=== PATIENT | female | born 1985 | race Caucasian/White ===

== ENCOUNTER 2017-07-11 20:08 | Observation (INO) | payer OTHER ==
[~2017-07-11] VITALS: Ht 157.5 cm; Wt 72.7 kg
--- NOTE | ~2017-07-11 | HP ---
History And Physical [facility] [address] [place]. [address] NAME: ASPEN MISHRA : 81 STATUS : DIS Jeovanny PAT#: [id number] AGE: 32 ADM/REG DATE : 07/12/17 MR#: [id number] REPORT SERV DATE: 07/13/17 DICTATED BY: SEB SCHNEIDER DATE: 07/13/17 REPORT STATUS : Draft TRANSCRIBED BY: MODVanessa DATE: 07/13/17 DATE OF ADMISSION: 07/12/2017 CHIEF COMPLAINT: Right flank pain. HISTORY OF PRESENT ILLNESS: Ms. Mishra is a 32-year-old healthy female with a two-day history of right flank pain. She endorses nausea, vomiting, fevers, and chills. She presents to the ER. In the ER, her white count is elevated at 15,000. Her urinalysis was inflammatory. Her pain is uncontrolled with oral pain medications. CT scan demonstrated an 8 mm stone in the proximal right ureter. I have been asked to admit the patient for these reasons. PAST MEDICAL HISTORY: None. PAST SURGICAL HISTORY: None. MEDICATIONS: Reviewed and listed in the chart. ALLERGIES: AMOXICILLIN. SOCIAL HISTORY: She does not smoke, drink, or use illegal drugs. REVIEW OF SYSTEMS: A 12-point review of systems was performed. Pertinent positives listed in the HPI. PHYSICAL EXAMINATION: VITAL SIGNS: Her temperature is 98.4, pulse is in the 100s, blood pressure is 102/64, and saturating 98% on room air. GENERAL: She is in no acute distress. She appears her stated age. HEENT: Her head is normocephalic and atraumatic. LUNGS: Breathing is nonlabored. She is not in respiratory distress. HEART: Pulse is regular in rate and rhythm. ABDOMEN: Soft, nontender, nondistended. She has right CVA tenderness. GENITOURINARY: She has normal external genitalia. PSYCHIATRIC: She is alert and oriented x3. EXTREMITIES: There is no cyanosis or edema. LABORATORY DATA: White count 15.7, hemoglobin is 12.8. Creatinine is 1.19. Urinalysis has large leukocyte esterase and blood. There are no nitrites. There are rare bacteria. IMAGING: CT scan of the abdomen and pelvis was personally reviewed and interpreted by myself. There is an 8 mm stone in the proximal right ureter. ASSESSMENT: Right ureteral stone. PLAN: Ms. Mishra has a right ureteral stone, which is causing severe pain and History And Physical [address] [address] NAME: ASPEN MISHRA : 81 STATUS : DIS Jeovanny PAT#: [id number] AGE: 32 ADM/REG DATE : 07/12/17 MR#: [id number] REPORT SERV DATE: 07/13/17 DICTATED BY: SEB SCHNEIDER DATE: 07/13/17 REPORT STATUS : Draft TRANSCRIBED BY: MARTHA DATE: 07/13/17 hydronephrosis. Her pain is uncontrolled with oral pain medications. She also has a history of fevers and an elevated white count. I think the safest thing to do at this point would be to place a stent and treat her stone in delayed fashion. We will plan on placing a stent CONY. We will keep her on IV antibiotics. ARTUR/MARTHA Seb Schneider MD / [id number] CC: Seb Schneider MD NO PCP
--- NOTE | ~2017-07-11 | OP ---
Record Of Operation [facility] [address] [place]. [address] NAME: ASPEN MISHRA : 81 STATUS : DIS Jeovanny PAT#: [id number] AGE: 32 ADM/REG DATE : 07/12/17 MR#: [id number] REPORT SERV DATE: 07/13/17 DICTATED BY: SEB SCHNEIDER DATE: 07/13/17 REPORT STATUS : Draft TRANSCRIBED BY: MARTHA DATE: 07/13/17 DATE OF PROCEDURE: 07/13/2017 TITLE OF OPERATION: Cystourethroscopy, right retrograde pyelogram placement 6 x 24 right ureteral stent. PREOPERATIVE DIAGNOSIS: Right ureteral stone. POSTOPERATIVE DIAGNOSIS: Right ureteral stone. INDICATIONS: Ms. Mishra is a 32-year-old female with an 8 mm right ureteral stone. She has uncontrolled pain [place] [id number]. She is here for stent placement. ANESTHESIA: General. COMPLICATIONS: None. IMPLANT: 6 x 24 right ureteral stent with no tether. SPECIMENS: None. NARRATIVE: The patient was brought to the operating room, identified by wristband. General anesthesia was induced and Rocephin were given for preoperative antibiotics. She was placed in dorsal lithotomy position, prepped and draped in sterile fashion. A 22-Salvadorean cystoscope was placed into her urethra and into her bladder. The bladder was inspected and was normal. The right ureteral orifice was identified and cannulated with a Sensor wire. Retrograde pyelogram was shot, which demonstrated a stone in the proximal right ureter. A wire was placed up past the stone with the aid of the open-ended catheter. A 6 x 24 ureteral stent was placed over the wire into the kidney. The proximal coil was in the renal pelvis. Distal coil was in the bladder. The bladder was drained. The patient was awoken from anesthesia and transferred to recovery room in stable condition. She will be sent home on antibiotics. ARTUR/MARTHA Seb Schneider MD / [id number] CC: Seb Schneider MD
[2017-07-11 21:08] LABS: BASOPHILS 0.1 %; BASOPHILS ABSOLUTE 0.02 10/3/uL (0.0-0.16); EOSINOPHILS 0.1 %; EOSINOPHILS ABSOLUTE 0.01 10/3/uL (0.0-0.53); ER CBC TAT 0 Hrs 07 Mins; HEMATOCRIT 38.3 % (36.0-48.0); HEMOGLOBIN 12.8 g/dL (12.0-16.0); IMMATURE GRANULOCYTES 0.3 %; IMMATURE GRANULOCYTES ABSOLUTE 0.04 10/3/uL (0.0-0.11); LYMPHOCYTES 5.3 %; LYMPHOCYTES ABSOLUTE 0.83 10/3/uL (0.67-4.30); MEAN CORPUS HGB CONC 33.4 g/dL (32.0-36.0); MEAN CORPUSCULAR HEMOGLOB 30.6 pg (26.0-34.0); MEAN CORPUSCULAR VOLUME 91.6 fL (80-100); MEAN PLATELET VOLUME 10.1 fL (9.2-13.0); MONOCYTES 5.4 %; MONOCYTES ABSOLUTE 0.84 10/3/uL (0.21-1.20); NEUTROPHILS 88.8 %; NEUTROPHILS ABSOLUTE 13.93 10/3/uL (2.02-8.40); PLATELET COUNT 367 10/3/uL (150-400); RBC DISTRIBUTION WIDTH 12.1 % (12.0-16.0); RED CELL COUNT 4.18 10/6/uL (4.0-5.6); WHITE BLOOD CELLS 15.7 10/3/uL (4.5-10.5)
[2017-07-11 21:11] LABS: MANUAL DIFF NO %
[2017-07-11 21:22] LABS: ASCORBIC ACID (UR NOT ORDER) NEG (NEG); BILIRUBIN, URINE NEGATIVE (NEG); ER URINALYSIS TAT 0 Hrs 21 Mins; KETONE, URINE 20 MG/DL (NEG); LEUKOCYTE ESTERASE(NOT OR LARGE (NEG); NITRITE (URINE) NEG (NEG); WBC (NOT ORDERED) (RFLEX) 37 (0-5)
[2017-07-11 21:24] LABS: A/G RATIO 0.9 (0.7-1.9); ALBUMIN 3.9 G/DL (3.5-5.0); ALKALINE PHOSPHATASE 81 U/L (45-117); BUN (BLOOD UREA NITROGEN) 12 MG/DL (6-23); CALCIUM, SERUM 9.2 MG/DL (8.5-10.4); CHLORIDE, SERUM 102 MMOL/L (96-112); CO2 (CARBON DIOXIDE) 22 MMOL/L (24-34); CREATININE 1.19 MG/DL (0.55-1.02); GFR AFRICAN AMERICAN 69 ML/MIN (>=60); GFR NON AFRICAN AMERICAN 60 ML/MIN (>=60); GLOBULIN 4.2 G/DL (2.5-4.1); GLUCOSE, SERUM 116 MG/DL (60-99); SGOT(AST) 13 U/L (5-40); SGPT(ALT) 26 U/L (5-65); SODIUM, SERUM 133 MMOL/L (135-148); TOTAL PROTEIN 8.1 G/DL (6.0-8.5)
[2017-07-12] MEDS ORDERED: PROZAC40 MG PO (03:40)
[2017-07-12] MEDS ORDERED: TRAZ100 PO (03:40)
[2017-07-12] MEDS ORDERED: SEASONIQUE PO (03:40)
[2017-07-12] MEDS ORDERED: MULTIVITAMI1 PO (03:41)
[2017-07-12] MEDS ORDERED: CAT1 PO (03:41)
[2017-07-12] MEDS ORDERED: STRATT PO (03:41)
== END 2017-07-12 18:23 | disposition home or self-care (01) ==
LOC: ER 20:08 → 4EA 07-12 04:51
PROVIDERS: Hospitalist; Urology
PROC: 0T768DZ Dilation of Right Ureter with Intraluminal Device, Via Natural or Artificial Opening Endoscopic (ICD-10-PCS; principal; 2017-07-12 14:45)
DX: N20.1 Calculus of ureter (principal); K21.9 Gastro-esophageal reflux disease without esophagitis; Z86.69 Personal history of other diseases of the nervous system and sense organs; Z98.890 Other specified postprocedural states; Z88.0 Allergy status to penicillin; Z79.890 Hormone replacement therapy
CPT/HCPCS: 74176; 74420; 80053; 81001; 83690; 84703; 85025; 87086; 96361; 96374; 96375; 96376; 99285; A9270-GY; C1758; C1769; C2617; G0378; J1170; J1885; J2250; J2370; J2405; J2550; J3010; Q9967